=== PATIENT | female | born 1970 | race Caucasian/White ===

== ENCOUNTER 2020-11-19 05:05 | Emergency (ER) | payer OTHER ==
[~2020-11-19] VITALS: Ht 167.6 cm; Wt 70.3 kg
[~2020-11-19 05:05] MED LIST: ALBUTEROL2.5 MG/3 M INH; ARMOUR THYROID15 MG PO; ARMOUR THYROID30 MG PO; CEPHALEXIN500 MG PO; CLARITIN10 MG PO; DOXYCYCLINE HY100 MG PO; MACROBID 100 M100 MG PO; NATURE-THROID325 MG PO; NORCO 5-325 TA1 EACH PO; OMEPRAZOLE20 MG PO; PRAVASTATIN SOD40 MG PO; PREVACID30 MG PO; PROAIR HFA8.5 GM INH; PYRIDIUM200 MG PO; SYNTHROID75 MCG PO; SYNTHROID88 MCG PO; ZOFRAN ODT8 MG PO
[2020-11-19] MEDS ORDERED: DICLOFENAC SODI75 MG PO (07:15)
[2020-11-19] MEDS ORDERED: CYCLOBENZAPRINE10 MG PO (07:15)
== END 2020-11-19 07:24 | disposition home or self-care (01) ==
LOC: ED 05:05
DX: R10.9 Unspecified abdominal pain (principal); E03.9 Hypothyroidism, unspecified; E78.5 Hyperlipidemia, unspecified; J45.909 Unspecified asthma, uncomplicated; Z88.2 Allergy status to sulfonamides; Z79.899 Other long term (current) drug therapy
CPT/HCPCS: 74176; 80053; 81001; 85025; 99284-25; J7030